=== PATIENT | male | born 1970 | race Caucasian/White ===

== ENCOUNTER 2018-06-14 12:52 | Observation (INO) | payer MEDICAID ==
[~2018-06-14] VITALS: Ht 188 cm; Wt 154.5 kg
--- NOTE | ~2018-06-14 | HEMODYNAMI ---
PATIENT:ROLDAN POLK JR MEDICAL RECORD: [id number] : 74 LOCATION:[facility] D.2119 ADMISSION DATE: 06/14/18 Generatedon:06/15/20188:21 Patient name: ROLDAN POLK Patient #: [id number] SSN: : 1970 Date of study: 06/15/2018 Page: Of Hemodynamic Procedure Report Patient Data Patient Demographics Procedure consent was obtained First Name: ROLDAN Gender: Male Last Name: JAM Suffix: Jr De Los Santos Initial: PALOMO : 1970 Patient #: [id number] Age: 48 year(s) Race: Unknown Additional ID: [id number] Contact details [address]: [address] [place] [address] rd State: [place] City: [place] Zip code: [address] Past Medical History Allergies Allergen Reaction Date Comments Reported Penicillins 06/15/2018 Admission Admission Data Admission Date: 06/14/2018 Admission Time: 13:46 Admit Source: Other Room #: D.2119 Lab Results Lab Result Date: 06/14/2018 Lab Result Time: 15:15 Biochemistry Name Units Result Min Max BUN mg/dl 11 --(-*--)-- 7 18 Creatinine mg/dl 0.8 --(-*--)-- 0.6 1.3 CBC Name Units Result Min Max Hematocrit % 49.4 --(--*-)-- 42 54 Hemoglobin g/dl 15.4 --(-*--)-- 13.5 17.5 Procedure Procedure Types Cath Procedure Diagnostic Procedure LHC LHC w/Coronaries Sedation Charges Moderate Sedation up to 15 minutes Procedure Description Procedure Date Procedure Date: 06/15/2018 Procedure Start Time: 8:04 Procedure End Time: 8:21 Procedure Staff Name Function López Welch MD Performing Physician Jimmy Deleon RT Monitor Brooke Casarez RT Scrub Alissa Ridley RN Nurse Prosper Johnson RT Rice Cleaning Machine Tender Procedure Data Cath Procedure Fluoroscopy Diagnostic fluoroscopy Total fluoroscopy Time: 3.4 time: 3.4 min min Diagnostic fluoroscopy Total fluoroscopy dose: dose: 1286 mGy 1286 mGy Contrast Material Contrast Material Type Amount (ml) Isovue 300 76 Entry Location Entry Primary Successful Side Size Upsize Upsize Entry Closure Ortiz ccessful Closure Location (Fr) 1 (Fr) 2 (Fr) Remarks Device Remarks Radial Right 6 Fr Mechanical artery Short Compression Estimated blood loss: 5 ml Diagnostic catheters Device Type Used For End Catheter Placement DIAGNOSTIC Giacomo 110cm Procedure 5Fr catheter ([id number]) DIAGNOSTIC Pigtail 5Fr Procedure catheter ([id number]) Procedure Complications No complications Procedure Medications Medication Administration Route Dosage 0.9% NaCl I.V. 100 ml/hr Oxygen etCO2 Nasal cannula 2 l/min Lidocaine 2% added to field 20 Heparin Flush Bag added to field 2 bags (1000units/500ml NS) Radial Cocktail added to field 1 syringe (Verapomil 2mg/Nitro 400mcg/Heparin 1500units) Versed I.V. 2 mg Fentanyl I.V. 50 mcg Versed I.V. 1 mg Fentanyl I.V. 25 mcg Hemodynamics Rest HGB: 15.4 (g/dl) Heart Rate: 82 (bpm) Pressure Samples Time Site Value (mmHg) Purpose Heart Use Rate(bpm) 8:09 LV 137/29,33 Snapshot 82 8:10 AO 124/88(101) Pullback 80 8:10 LV 141/-2,22 Pullback 80 8:15 LV 139/22,40 Snapshot 75 8:17 AO 130/86(104) Pullback 74 8:17 LV 146/0,43 Pullback 74 Gradients Valve Time Site 1 Site 2 Mean SEP/DFP Peak To Heart Use (mmHg) (sec/min) Peak Rate (mmHg) (bpm) Aortic 8:10 LV AO 33 10 17 80 141/-2,22 124/88(101) Aortic 8:17 LV AO 22 8 16 74 146/0,43 130/86(104) Calculations Valve P-P Mean Valve Index Valve Source Name Gradient Area Flow (cm2) Aortic 16 22 16 22 Snapshots Pre Cath Intra NCS Post Cath Vital Signs Time Heart Resp SPO2 NIBP (mmHg) Rhythm Pain Sedation Rate (ipm) (%) Status Level (bpm) 7:51:33 95 19 96 153/87(124) NSR 0 (11) 10(A) , No pain 7:56:06 76 19 96 139/84(115) NSR 0 (11) 10(A) , No pain 8:00:28 82 13 94 140/98(119) NSR 0 (11) 10(A) , No pain 8:04:52 76 15 94 144/110(125) NSR 0 (11) 10(A) , No pain 8:09:25 81 14 95 121/85(115) NSR 0 (11) 10(A) , No pain 8:14:52 73 16 95 152/82(107) NSR 0 (11) 9(A) , No pain 8:19:29 70 13 96 137/79(106) NSR 0 (11) 10(A) , No pain Medications Time Medication Route Dose Verified Delivered Reason Notes Ef fectiveness by by 7:41:55 0.9% NaCl I.V. 100 López Alissa used for ml/hr Yuri Ridley picking machine operator 7:42:05 Oxygen etCO2 2 l/min López Alissa used for Nasal Yuri Ridley procedure cannula RN 7:42:11 Lidocaine 2% added 20ml López López for local to vial Yuri Welch MD anesthetic field 7:42:17 Heparin Flush added 2 bags López López used for Bag to Yuri Welch MD procedure (1000units/500ml field NS) 7:53:56 Radial Cocktail added 1 López López used for (Verapomil to syringe Yuri Welch MD procedure 2mg/Nitro field 400mcg/Heparin 1500units) 7:59:03 Versed I.V. 2 mg López Alissa for Yuri Ridley sedation RN 7:59:10 Fentanyl I.V. 50 mcg López Alissa for Yuri Ridley sedation RN 8:09:46 Versed I.V. 1 mg López Alissa for Yuri Ridley sedation RN 8:09:51 Fentanyl I.V. 25 mcg López Alissa for Yuri Ridley sedation equipment installer Log Time Note 7:33:58 Informed consent obtained and on chart 7:34:02 Admit Source: Other 7:34:28 Diagnostic Cath status Elective 7:34:30 Prosper Johnson RT(R) sent for patient. Start room use. 7:34:31 Time tracking: Regular hours (M-F 7:00 - 5:00) 7:34:39 Plan of Care:Hemodynamics will remain stable., Cardiac rhythm will remain stable., Comfort level will be maintained., Respiratory function will remain adequate., Patient/ family verbilizes understanding of procedure., Procedure tolerated without complication., Recovers from procedure without complications.. 7:39:25 Lab Result : Creatinine 0.8 mg/dl 7:39:25 Lab Result : BUN 11 mg/dl 7:39:25 Lab Result : Hemoglobin 15.4 g/dl 7:39:25 Lab Result : Hematocrit 49.4 % 7:39:27 Lab results completed and on chart. 7:39:36 H&P Date Dictated: 06/14/2018 Within 30 days and on chart.. 7:41:55 0.9% NaCl 100 ml/hr I.V. was administered by Alissa Ridley RN; used for procedure; 7:42:05 Oxygen 2 l/min etCO2 Nasal cannula was administered by Alissa Ridley RN; used for procedure; 7:42:11 Lidocaine 2% 20ml vial added to field was administered by López Welch MD; for local anesthetic; 7:42:17 Heparin Flush Bag (1000units/500ml NS) 2 bags added to field was administered by López Welch MD; used for procedure; 7:45:46 Patient received from Med II to CCL 1 Alert and oriented. Tansferred to table in Supine position. 7:45:47 Warm blankets applied, and hayden hugger turned on for patient comfort. 7:45:47 Correct patient and procedure confirmed by team. 7:45:50 Signed procedure consent form obtained from patient. 7:50:11 ECG and BP/O2 sat monitors applied to patient. 7:50:12 Baseline sample Acquired. 7:50:12 Vital chart was started 7:50:17 Rhythm: sinus rhythm 7:50:19 Baseline sample Acquired. 7:50:23 Full Disclosure recording started 7:50:24 Pre-procedure instructions explained to patient. 7:50:24 Pre-op teaching completed and patient verbalized understanding. 7:50:26 Family in patients room. 7:50:29 Patient NPO since Midnight. 7:50:37 Patient allergic to Penicillins 7:50:41 Is the patient allergic to Iodine/contrast media? No. 7:50:45 Is patient on blood thinner?Yes 7:50:49 ACC The patient was administered the following blood thiners within the last 24 hours: None 7:50:53 Patient diabetic? Yes. 7:51:21 If diabetic: On Metformin? Yes 7:51:26 If on Metformin: Last Dose? 06/14/2018 7:51:27 ----Pre-sedation anethsthesia assessment.---- 7:51:31 Previous problem with sedation/anesthesia? No ? 7:51:32 Snore? Yes 7:51:34 Sleep apnea? Yes 7:51:35 Deviated septum? No 7:51:37 Opens mouth fully? Yes 7:51:38 Sticks out tongue? Yes 7:51:47 Airway obstruction? No former smoker 7:52:20 Dentures? No ? 7:52:24 Pre procedure: right dorsailis pedis pulse 1+ Palpable, but thready & weak; easily obliterated 7:52:28 Modified Kodak's test Ulnar < 7 seconds 7:52:31 Patient pain scale 0/10 ?. 7:52:37 IV patent on arrival in left wrist with 0.9% NaCl at 10ml/hr. 7:52:46 Right Radial & Right Groin area was prepped with chlora-prep and draped in sterile fashion 7:52:48 Alarms reviewed by R. N. 7:52:48 Sharps counted by scrub and verified by R.N. 7:52:50 Physician arrived 7:52:54 --------ALL STOP TIME OUT------ 7:52:55 Final Timeout: patient, procedure, and site verified with staff and physician. All members of the team are in agreement. 7:52:57 Right Radial & Right Groin site verified by team. 7:53:03 Physical assessment completed. ASA score P 3 - A patient with severe systemic disease as per López Welch MD. 7:53:07 Sedation plan: IV Moderate Sedation Medication:Versed, Fentanyl 7:53:12 Use device set Radial Dx or PCI 7:53:14 ACIST Syringe (25469) opened to sterile field. 7:53:15 Medline Cath Pack ([id number]) opened to sterile field. 7:53:15 Bag Decanter (2001S) opened to sterile field. 7:53:16 DIAGNOSTIC WIRE .035 260cm J wire (105601) opened to sterile field. 7:53:17 ACIST Hand Control (15009) opened to sterile field. 7:53:18 ACIST Manifold (93866) opened to sterile field. 7:53:19 Tegaderm 4 x 4 (1626W) opened to sterile field. 7:53:19 MBrace Wrist Support ([id number]) opened to sterile field. 7:53:22 TR BAND Large ([id number]) opened to sterile field. 7:53:56 Radial Cocktail (Verapomil 2mg/Nitro 400mcg/Heparin 1500units) 1 syringe added to field was administered by López Welch MD; used for procedure; 7:56:08 Baseline sample Acquired. 7:59:03 Versed 2 mg I.V. was administered by Alissa Ridley RN; for sedation; 7:59:10 Fentanyl 50 mcg I.V. was administered by Alissa Ridley RN; for sedation; 7:59:58 SHEATH 6FR Slender ([id number]) opened to sterile field. 8:00:25 NEEDLE Cook 21G 4cm Radial (Z61782) opened to sterile field. 8:04:31 Zero performed for pressure channel P1 8:04:35 Zero performed for pressure channel P1 8:04:43 Procedure started. 8:04:49 Local anesthetic to right radial artery with Lidocaine 2% by López Welch MD.INITIAL ACCESS ONLY 8:04:57 A 6 Fr Short sheath was inserted into the Right Radial artery 8:07:29 A DIAGNOSTIC Giacomo 110cm 5Fr catheter (750556) was advanced over the wire and used for Procedure. 8:09:46 Versed 1 mg I.V. was administered by Alissa Ridley RN; for sedation; 8:09:46 LV gram done using BERNARD 8:09:49 Injector settings: Ml/sec: 7, Volume: 15, 8:09:51 Fentanyl 25 mcg I.V. was administered by Alissa Ridley RN; for sedation; 8:10:22 EF : 45 % 8:10:24 LV hemodynamics recorded. 8:10:53 RCA angiography performed. 8:12:20 LCA angiography performed. 8:13:14 Catheter removed. 8:14:31 A DIAGNOSTIC Pigtail 5Fr catheter ([id number]) was advanced over the wire and used for Procedure. 8:16:08 LV gram done using BERNARD 8:16:12 Injector settings: Ml/sec: 10, Volume: 20, 8:17:05 Catheter removed. 8:17:22 Sheath removed intact; hemostasis achieved with Mechanical Compression to the Right Radial artery. 8:17:23 Procedure ended.(Physican Out) 8:19:06 Fluoroscopy time 03.40 minutes. 8:19:10 Fluoroscopy dose: 1286 mGy 8:19:10 Flurop Dose total: 1286 8:19:19 Contrast amount:Isovue 300 76ml. 8:19:21 Sharps counted by scrub and verified by R.N. 8:19:22 TR band inflated with 13cc of air. 8:19:23 Insertion/operative site no bleeding no hematoma. 8:19:28 Post right radial artery:stable, soft, clean and dry 8:19:29 Post Procedure Pulses reassessed and unchanged 8:19:38 Post-procedure physical assessment completed. ASA score P 3 - A patient with severe systemic disease as per López Welch MD. 8:19:47 Post procedure rhythm: unchanged. 8:19:49 Estimated blood loss: 5 ml 8:19:52 Post procedure instruction explained to patient.Patient verbalizes understanding. 8:19:53 Patient needs reinforcement of post procedure teaching. 8:20:05 Procedure type changed to Cath procedure, Diagnostic procedure, LHC, LHC w/Coronaries, Sedation Charges, Moderate Sedation up to 15 minutes 8:20:44 Procedure and supply charges have been captured, reviewed, submitted and are correct. 8:20:46 Procedure Complication : No complications 8:20:56 Vital chart was stopped 8:20:56 See physician's report for complete and final results. 8:20:59 Report given to PCU. 8:21:02 Patient transfered to PCU with Stretcher. 8:21:12 Procedure ended. 8:21:12 Full Disclosure recording stopped 8:21:17 End room use (Document Last) Device Usage Item Name Manufacture Quantity Catalog Hospital Part Current Minima l Lot# / Number Charge Number Stock Stock Serial# Code [place] [address] 05273 238623 671215 025669 20 Syringe Medical (63861) Systems Inc Medline Cath Medline 1 [id number] 998202 58339 755949 5 Pack ([id number]) Bag Decanter Microtek 1 2001S 843620 70551 352926 5 (2001S) Medical Inc. DIAGNOSTIC St El 1 319301 626259 740596 472736 30 WIRE .035 260cm J wire (980206) ACIST Hand Acist 1 69764 537621 209122 876228 5 Control Medical (20971) Systems Inc ACIST Acist 1 60329 444588 653598 669798 5 Manifold Medical (76188) Systems Inc Tegaderm 4 x 3M 1 1626W 531307 953891 223817 5 4 (1626W) MBrace Wrist Advanced 1 140-0250-00 611092 54013 425096 5 Support Vascular (148679703) Dynamics TR BAND Terumo 1 [id number] 587858 583594 533427 40 Large ([id number]) SHEATH 6FR Terumo 1 [id number] 218949 595122 933524 40 Slender ([id number]) DIAGNOSTIC Terumo 1 405023 448520 283470 323251 5 Giacomo 110cm 5Fr catheter (206916) DIAGNOSTIC Cardinal 1 [id number] 961632 975340 336677 5 Pigtail 5Fr Health catheter (283517Z) NEEDLE Intuity Medical Medical 1 M32198 758214 377328 488417 5 21G 4cm Radial (J68564) Signature Audit Novinger Stage Time Signature Unsigned Intra-Procedure 06/15/2018 Jimmy Deleon 8:21:43 AM RT(R) Signatures Monitor : Jimmy Deleon RT Signature : Date : Time : [facility] [address] [place] [address]
--- NOTE | ~2018-06-14 | MORECARE ---
CASE MANAGEMENT DISCHARGE SUMMARY PATIENT: ROLDAN POLK JR UNIT: [id number] ADM DATE: 06/14/18 AGE: 48 : 74 SEX: M ROOM/BED: D.2117 AUTHOR: NUNO SHELTON PHYSICIAN: REFERRING PHYSICIAN: ERASTO MAYS M.D. DATE OF SERVICE: 06/16/18 Discharge Plan Patient Name: ROLDAN POLK Facility: [facility]:[place] : 1970 Planned Disposition: Home Anticipated Discharge Date: 06/15/18 Discharge Date: 06/15/2018 Expected LOS: 1 Initial Reviewer: [email or web address] Initial Review Date: 06/16/2018 Generated: 06/16/18 9:29 am Patient Name: ROLDAN POLK Page [id number] at 0829 All edits/amendments must be made on the electronic document DICTATION DATE: 06/16/18828 WATCH REPAIRER APPRENTICE: DAYSI 06/16/18828 RPT#: [id number] DC DATE:06/15/18 STATUS: DIS IN [facility] [address] [place] [address] END OF REPORT
[~2018-06-14 12:52] MED LIST: BETAPACE 120 M120 MG PO; FUROSEMIDE40 MG PO; LANOXIN250 MCG PO; TENORMIN50 MG PO; XARELTO20 MG PO
[2018-06-14] MEDS ORDERED: LANOXIN125 MCG PO (14:10)
[2018-06-14] MEDS ORDERED: ZYLOPRIM300 MG PO (14:13)
[2018-06-14] MEDS ORDERED: PRAVASTATIN SOD10 MG PO (14:13)
[2018-06-14] MEDS ORDERED: FISH OIL 1,0001 CA1 PO (14:15)
[2018-06-14] MEDS ORDERED: BAYER CHEWABLE81 MG PO (14:18)
[2018-06-14] MEDS ORDERED: VITAMIN D5000 UNIT PO (14:19)
[2018-06-14] MEDS ORDERED: GLUCOPHAGE500 MG PO (14:22)
[2018-06-14 16:38] VITALS: BP 143/85; Ht 188 cm; Wt 154.5 kg
[2018-06-14 17:17] LABS: BASOPHILS 0.3 % (0-2); HEMATOCRIT 49.4 % (42.0-54.0); HEMOGLOBIN 15.4 g/dL (13.5-17.5); IMMATURE GRANULOCYTES 0.3 % (0-5); LYMPHOCYTES 15.8 % (15-50); MCH 30.6 pg (26.0-34.0); MCHC 31.2 g/dL (31.0-37.0); MCV 98.2 fL (80.0-100.0); MEAN PLATELET VOLUME 10.7 fL (7.4-10.4); MONOCYTES 7.5 % (2-11); NEUTROPHILS 75.1 % (40-80); PLATELET COUNT 182 10x3/uL (130-400); RBC 5.03 10x6/uL (4.20-6.10); RDW 13.9 % (11.5-14.5)
[2018-06-14 17:28] LABS: CALC OSMOLALITY 277 mosm/kg (275-300); CALCIUM 9.2 mg/dL (8.5-10.1); CARBON DIOXIDE 27.9 mmol/L (21.0-32.0); CHLORIDE - SERUM 101 mmol/L (98-107); CREATININE - SERUM 0.8 mg/dL (0.6-1.3); GLUCOSE 114 mg/dL (74-106); POTASSIUM - SERUM 4.5 mmol/L (3.5-5.1); SODIUM 139 mmol/L (136-145); UREA NITROGEN 11 mg/dL (7-18); eGFR NON AFRICAN AMERICAN > 90 mL/min (90-120)
[2018-06-14 19:07] VITALS: BP 129/82
[2018-06-14 20:30] VITALS: BP 120/70
[2018-06-15 02:08] VITALS: BP 115/67
[2018-06-15 04:30] VITALS: BP 135/90
[2018-06-15 13:38] VITALS: BP 120/60
[2018-06-15] MEDS ORDERED: ALDACTONE25 MG PO (13:53)
== END 2018-06-15 15:14 | disposition home or self-care (01) ==
LOC: D.M2 12:52 → OBSVTIME 13:47 → D.M2 06-15 15:14
PROVIDERS: Internal Medicine Cardiovascular Disease
DX: I42.9 Cardiomyopathy, unspecified (principal); I48.2 Chronic atrial fibrillation; I25.10 Atherosclerotic heart disease of native coronary artery without angina pectoris; E11.9 Type 2 diabetes mellitus without complications; Z95.810 Presence of automatic (implantable) cardiac defibrillator; Z87.891 Personal history of nicotine dependence

== ENCOUNTER 2018-06-16 08:51 | Emergency (ER) | payer MEDICAID ==
[~2018-06-16] VITALS: Ht 188 cm; Wt 150.0 kg
[~2018-06-16 08:51] MED LIST changes: +ALDACTONE25 MG PO; +BAYER CHEWABLE81 MG PO; +FISH OIL 1,0001 CA1 PO; +GLUCOPHAGE500 MG PO; +LANOXIN125 MCG PO; +PRAVASTATIN SOD10 MG PO; +VITAMIN D5000 UNIT PO; +ZYLOPRIM300 MG PO
[2018-06-16 08:55] VITALS: Ht 188 cm; Wt 150.0 kg
[2018-06-16 09:34] LABS: BASOPHILS 0.3 % (0-2); EOSINOPHILS 0.9 % (0-7); HEMATOCRIT 48.7 % (42.0-54.0); HEMOGLOBIN 15.2 g/dL (13.5-17.5); IMMATURE GRANULOCYTES 0.1 % (0-5); LYMPHOCYTES 16.4 % (15-50); MCH 30.8 pg (26.0-34.0); MCHC 31.2 g/dL (31.0-37.0); MCV 98.6 fL (80.0-100.0); MEAN PLATELET VOLUME 10.2 fL (7.4-10.4); MONOCYTES 6.3 % (2-11); PLATELET COUNT 205 10x3/uL (130-400); RBC 4.94 10x6/uL (4.20-6.10); RDW 13.8 % (11.5-14.5); WBC 7.8 10x3/uL (4.8-10.8)
[2018-06-16 09:54] LABS: ALBUMIN 3.3 g/dL (3.4-5.0); ALKALINE PHOSPHATASE 62 U/L (46-116); ALT (SGPT) 32 U/L (10-68); BILIRUBIN - TOTAL 1.35 mg/dL (0.2-1.3); CALC OSMOLALITY 280 mosm/kg (275-300); CALCIUM 8.8 mg/dL (8.5-10.1); CARBON DIOXIDE 33.5 mmol/L (21.0-32.0); CHLORIDE - SERUM 101 mmol/L (98-107); CREATININE - SERUM 0.8 mg/dL (0.6-1.3); GLUCOSE 181 mg/dL (74-106); POTASSIUM - SERUM 4.4 mmol/L (3.5-5.1); PROTEIN - SERUM 7.5 g/dL (6.4-8.2); SODIUM 138 mmol/L (136-145); UREA NITROGEN 12 mg/dL (7-18); eGFR NON AFRICAN AMERICAN > 90 mL/min (90-120)
[2018-06-16 10:09] LABS: CKMB 1.9 U/L (0.0-3.6); CREATINE KINASE 61 UL (21-232); PRO BNP 1019 pg/mL (0-125)
[2018-06-16 10:11] LABS: TROPONIN-I 0.073 ng/mL (0.000-0.060)
[2018-06-16 10:41] VITALS: BP 140/90
== END 2018-06-16 10:31 | disposition home or self-care (01) ==
LOC: D.ER 08:51
PROVIDERS: Family Medicine
DX: T82.198A Other mechanical complication of other cardiac electronic device, initial encounter (principal); I25.10 Atherosclerotic heart disease of native coronary artery without angina pectoris; I42.9 Cardiomyopathy, unspecified

== ENCOUNTER 2018-08-07 05:08 | Emergency (ER) | payer MEDICAID ==
[~2018-08-07] VITALS: Ht 188 cm; Wt 152.3 kg
[2018-08-07 05:14] VITALS: Ht 188 cm; Wt 152.3 kg
[2018-08-07 06:15] LABS: BASOPHILS 0.3 % (0-2); EOSINOPHILS 1.2 % (0-7); HEMATOCRIT 43.9 % (42.0-54.0); HEMOGLOBIN 14.5 g/dL (13.5-17.5); IMMATURE GRANULOCYTES 0.3 % (0-5); LYMPHOCYTES 18.1 % (15-50); MCH 31.1 pg (26.0-34.0); MCV 94.2 fL (80.0-100.0); MEAN PLATELET VOLUME 10.4 fL (7.4-10.4); MONOCYTES 8.2 % (2-11); NEUTROPHILS 71.9 % (40-80); PLATELET COUNT 193 10x3/uL (130-400); RBC 4.66 10x6/uL (4.20-6.10); RDW 14.4 % (11.5-14.5); WBC 6.5 10x3/uL (4.8-10.8)
[2018-08-07 06:31] LABS: ALBUMIN 3.2 g/dL (3.4-5.0); ALKALINE PHOSPHATASE 57 U/L (46-116); ALT (SGPT) 37 U/L (10-68); BILIRUBIN - TOTAL 0.87 mg/dL (0.2-1.3); CALC OSMOLALITY 278 mosm/kg (275-300); CALCIUM 8.8 mg/dL (8.5-10.1); CARBON DIOXIDE 29.2 mmol/L (21.0-32.0); CHLORIDE - SERUM 102 mmol/L (98-107); CREATININE - SERUM 0.9 mg/dL (0.6-1.3); POTASSIUM - SERUM 3.8 mmol/L (3.5-5.1); PROTEIN - SERUM 7.3 g/dL (6.4-8.2); SODIUM 138 mmol/L (136-145); UREA NITROGEN 16 mg/dL (7-18); eGFR NON AFRICAN AMERICAN > 90 mL/min (90-120)
[2018-08-07 06:32] LABS: GLUCOSE 126 mg/dL (74-106)
[2018-08-07 06:51] LABS: CKMB 3.2 U/L (0.0-3.6); CREATINE KINASE 198 UL (21-232)
[2018-08-07 06:56] VITALS: BP 106/70
== END 2018-08-07 06:57 | disposition home or self-care (01) ==
LOC: D.ER 05:08
PROVIDERS: Emergency Medicine
DX: R00.2 Palpitations (principal); Z95.0 Presence of cardiac pacemaker; I42.9 Cardiomyopathy, unspecified; I25.10 Atherosclerotic heart disease of native coronary artery without angina pectoris; I48.91 Unspecified atrial fibrillation; I45.4 Nonspecific intraventricular block; I49.3 Ventricular premature depolarization

== ENCOUNTER → 2020-01-11 08:24 | Outpatient (CLI) | payer MEDICAID ==
[2018-08-07 05:14] VITALS: BMI 43.1
--- NOTE | ~2020-01-11 | EC ---
PATIENT:ROLDAN POLK JR DATE OF SERVICE: 01/11/20 SEX: M MEDICAL RECORD: [id number] DATE OF : 74 LOCATION:D.[facility]ER[facility] AGE OF PATIENT: 49 ADMISSION DATE: 01/11/20 REFERRING PHYSICIAN: INTERPRETING PHYSICIAN: ARNULFO CORONADO MD ECHOCARDIOGRAM REPORT ECHO CHARGES 4 ECHO COMPLETE Date: 01/11/20 CLINICAL DIAGNOSIS: CARDIOMYOPATHY HX OF ICD/CHRONIC AFIB/HTN ECHOCARDIOGRAPHIC MEASUREMENTS (adult normal given) AC root (d.<3.7cm) 3.9 cm LV Septum d (<1.2 cm> 1.5 cm Valve Excursion 1.9 cm LV Septum (systole) 1.7 cm Left Atria (s.<4.0cm> 6.2 cm LVPW d(<1.2cm) 1.7 cm RV (d.<2.3cm) 4.6 cm LVPW (sytole) 1.8 cm LV diastole(<5.6CM) 6.4 cm MV E-F(>70mm/sec) cm LV systole 5.1 cm LVOT Diameter 2.1 cm MV exc.(>10mm) cm Est.ejection fraction (50-75%) % DOPPLER: LVIT cm/sec A 73.0 cm/sec E cm/sec LA cm/sec RVSP 21 mmHg LVOT 95 cm/sec AOP1/2T m/s Asc. Ao 102 cm/sec RVOT 82 cm/sec RA cm/sec PA 107 cm/sec AV Gradient Peak 4.15 mmHg AV Mean 2.09 mmHg AV Area 3.7 cm MV Gradient Peak 4.42 mmHg MV Mean 1.57 mmHg MV Area cm COMMENTS: Product Safety Specialist: 2 CARLY RÍOS Benefits Assistant: 3 Dr. Holly TAPE# PACS Pericardial Effusion N DATE OF SERVICE: Technically difficult study includes 2D, color flow imaging, spectral Doppler and M-mode. LVH is present. LV internal dimensions are dilated. LV appears to be mildly globally hypo with EF mildly reduced 45% to 50%. Aortic valve shows no evidence of stenosis by Doppler interrogation. The left atrium is dilated at 6.2 cm. Mitral valve shows no prolapse. Trace MR. Right-sided chamber grossly normal. Trace TR. ECHOCARDIOGRAM REPORT [id number] ROLDAN POLK [place] WRAY TRANSINT:[id number] Voice Confirmation ID: [id number] DOCUMENT ID: [id number] ARNULFO CORONADO MD CC: [id number] DICTATION DATE: 01/12/20 1232 CORRECTION OFFICER: 01/12/20 2236 DEP CLI 01/11/20 [place] [id number]
== END | disposition home or self-care (01) ==
LOC: D.HCCECHO 08:24
PROVIDERS: ATTEND Internal Medicine Interventional Cardiology
DX: I42.9 Cardiomyopathy, unspecified (principal)